=== PATIENT | male | born 1935 | race Caucasian/White ===

== ENCOUNTER 2022-04-02 08:08 | Inpatient (IN) | payer OTHER, MEDICARE ==
[~2022-04-02] VITALS: Ht 188 cm; Wt 82.6 kg
[2022-04-02 08:08] VITALS: BP_SYST 148
--- NOTE | 2022-04-02 08:08 | NUR ---
BROUGHT IMMEDIATELY BACK TO BED #3 VIA WHEELCHAIR AND TRIAGED. REPORT GIVEN TO MAGGIE
--- NOTE | 2022-04-02 08:10 | NUR ---
REPORT RECEIVED, CARE ASSUMED, PT ASSESSED. PT ATTACHED TO MONITOR, EKG OBTAINED, IV STARTED AND BLOOD OBTAINED AND TAKEN TO LAB
--- NOTE | 2022-04-02 08:15 | NUR ---
MATTHEW Lyn at bedside examining patient.
--- NOTE | 2022-04-02 08:35 | NUR ---
Blood specimens sent to lab at this time.
[2022-04-02] MEDS ORDERED: NIAC250T18 PO (08:42)
[2022-04-02] MEDS ORDERED: MULT-1089 PO (08:42)
[2022-04-02] MEDS ORDERED: AMLO5TAB4 PO (08:42)
[2022-04-02] MEDS ORDERED: CALC-823 PO (08:42)
[2022-04-02] MEDS ORDERED: LOSA1TAB43 PO (08:42)
[2022-04-02] MEDS ORDERED: METO50TA7 PO (08:42)
[2022-04-02] MEDS ORDERED: TAMS-11 PO (08:42)
[2022-04-02] MEDS ORDERED: AMIO200T6 PO (08:42)
[2022-04-02] MEDS ORDERED: ASPI-862 PO (08:42)
--- NOTE | 2022-04-02 08:43 | NUR ---
Medication reconciliation completed with information provided by PTS LIST. Any prior medication reconciliation on file was reviewed and corrected.
--- NOTE | 2022-04-02 08:43 | NUR ---
DR VILLELA SPEAKING WITH PTS SON
--- NOTE | 2022-04-02 08:44 | NUR ---
XRAYS BEING DONE AT BEDSIDE. FAMILY AT BEDSIDE.
[2022-04-02 08:52] LABS: BASOPHILS % (AUTO) 0.2 % (0.0-2.0); HEMATOCRIT 46.8 % (36-54); HEMOGLOBIN 15.6 g/dL (14.0-18.0); LYMPHOCYTES # (AUTO) 1.5 K/uL (1.0-5.5); LYMPHOCYTES % (AUTO) 11.9 % (20.5-51.5); MEAN CORPUSCULAR HEMOGLOBIN 31 pg (27-31); MEAN CORPUSCULAR HGB CONC 33 % (32-36); MEAN CORPUSCULAR VOLUME 94 fL (79.0-98.0); MONOCYTES % (AUTO) 8.2 % (1.7-9.3); NEUTROPHILS # (AUTO) 9.9 K/uL (1.8-7.7); NEUTROPHILS % (AUTO) 79.7 % (40.0-70.0); PLATELET COUNT (AUTO) 155 K/uL (130-430); RED CELL DISTRIBUTION WIDTH 14.8 % (9.0-15.0); WHITE BLOOD COUNT (AUTO) 12.4 K/uL (4.8-10.8)
[2022-04-02] MEDS ORDERED: AMIODARONE HCL 450 MG/9 ML VIAL IV ONE (08:59)
[2022-04-02] MEDS ORDERED: AMIODARONE HCL 150 MG/3ML VIAL ONE (08:59)
[2022-04-02] MEDS ORDERED: AMIODARONE HCL 150 MG in D5W 97 ML IV ONE (09:00)
[2022-04-02] MEDS ORDERED: AMIODARONE HCL 450 MG in D5W 241 ML IV ONE (09:00)
--- NOTE | 2022-04-02 09:10 | NUR ---
AMIODARONE BOLUS STARTED
[2022-04-02 09:11] LABS: ANION GAP 19 (5-15); CALCIUM 8.8 mg/dL (8.4-11.0); CHLORIDE 104 mmol/L (98-107); CREATININE 2.67 mg/dL (0.55-1.30); GLUCOSE 151 mg/dL (70-99); UREA NITROGEN, BLOOD 26 mg/dL (8-21)
[2022-04-02 09:17] LABS: ALANINE AMINOTRANSFERASE 271 U/L (12-78); ASPARTATE AMINOTRANSFERASE 190 U/L (10-37); TOTAL BILIRUBIN 1.5 mg/dL (0.0-1.0)
[2022-04-02] MEDS ORDERED: FUROSEMIDE 20 MG/2 ML VIAL IVP ONE ×2 (09:30→14:30)
[2022-04-02] MEDS ORDERED: ASPIRIN 325 MG TABLET PO ONE (09:30)
--- NOTE | 2022-04-02 09:30 | NUR ---
AMIODARONE BOLUS COMPLETE, GTT STARTED
--- NOTE | 2022-04-02 10:00 | NUR ---
PT RESTING QUIETLY, STATUS UNCHANGED, RESP EASY, CHANGED TO HOSP GOWN
--- NOTE | 2022-04-02 10:10 | NUR ---
AMIODARONE GTT DC'D PER DR VILLELA ORDER FROM DR YEIMI LINN
--- NOTE | 2022-04-02 10:31 | NUR ---
COVID TEST GIVEN TO LAB AT 10:24
--- NOTE | 2022-04-02 10:31 | NUR ---
Admit bed requested Patient will be admitted to care of . Admitted to TELE unit. Diagnosis CHF EXAC Inpatient (Yes or No)Y Observation (Yes or No) N Orientation concerns or request close to nursing station (Yes or No) N Covid Status PENDING On vent or bipap N Isolation requirements N Needs a sitter From Home (Yes or if No enter name of facility) Requires Dialysis (Yes or No) Med Rec Completed (Yes of No)
--- NOTE | 2022-04-02 10:57 | NUR ---
PT RESTING QUIETLY, RESP EASY, MM PINK, NO APPARENT DISTRESS. NO CHANGE IN CONDITION. WILL CONT TO MONITOR
[2022-04-02 11:15] LABS: PROTHROMBIN TIME 10.6 SECS (9.5-12.5)
[2022-04-02] MEDS ORDERED: ENOXAPARIN SODIUM 80 MG/0.8 ML SYRINGE SUBCUT SCH (12:00)
--- NOTE | 2022-04-02 12:02 | NUR ---
Patient will be admitted to care of . Admitted to tele unit. Will go to room 111. Belongings list completed. Complete and up to date summary report printed. SBAR report to be given at bedside with opportunity for questions.
[2022-04-02 12:26] VITALS: BP_SYST 182
--- NOTE | 2022-04-02 12:30 | NUR ---
Admission notes Received report from Michele MELLO ( E.R nurse)
[2022-04-02 12:35] VITALS: BP_SYST 182
--- NOTE | 2022-04-02 12:35 | NUR ---
Admission notes Received patient E.R awake and oriented x 4, Respiration even , no c/o chest pain or SOB, no signs of distress, sinus rhythm on monitor. Oxygen saturation 98% on 2L nasal cannula. Abdomen soft nontender, skin warm to touch. IV to bilateral arms and right hand patent. Oriented to room and call light, all safety measure secure, call light w/in reached , bed in low position, continue to monitor.
--- NOTE | 2022-04-02 13:50 | NUR ---
Dr. Saha at bedside seeing patient
--- NOTE | 2022-04-02 13:54 | NUR ---
Critical lab Dr. Saha aware of troponin 474
[2022-04-02] MEDS ORDERED: TAMSULOSIN HCL 0.4 MG CAP PO ONE (14:15)
[2022-04-02] MEDS ORDERED: NON-FORMULARY MEDICATION (Losartan/Hctz* (Losartan-Hctz 100-12.5 Mg Tab*) 1 EACH) PO SCH (14:15)
[2022-04-02] MEDS ORDERED: AMIODARONE HCL 200 MG TABLET PO ONE (14:15)
[2022-04-02] MEDS ORDERED: METOPROLOL SUCCINATE 50 MG TAB.SR.24H (TOPROL XL) PO ONE (14:15)
[2022-04-02] MEDS ORDERED: PANTOPRAZOLE SODIUM 40 MG TAB PO ONE (14:30)
[2022-04-02] MEDS ORDERED: NITROGLYCERIN 1 INCH (GM) OINT. TP ONE (14:30)
--- NOTE | 2022-04-02 15:09 | NUR ---
BLADDER SCAN- PT WENT TO BATHROOM AND HAD BOWEL MOVEMENT AND ALSO URINATE. BLADDER SCAN DONE AND ITS ONLY HAD 37ML POST VOID.
[2022-04-02 15:39] VITALS: BP_SYST 160
--- NOTE | 2022-04-02 15:46 | NUR ---
CARDIOLOGY CONSULT WITH DR MUNIZ WAS TEXTED TO HIM, TO SEE PT TOMORROW 04/03/[address] ATT[address]ING MD DR JALLOH, RE: CHF.
--- NOTE | 2022-04-02 15:51 | NUR ---
DR JALLOH IS AWARE THAT DR MUNIZ, CARDIO MD WILL BE BACK TOMORROW.
[2022-04-02] MEDS ORDERED: cloNIDine HCL 0.1 MG TABLET PO PRN (16:15)
--- NOTE | 2022-04-02 16:15 | NUR ---
Rounding Patient awake, no c/o chest discomfort, no signs of distress, family at bedside.
[2022-04-02 16:42] VITALS: BP_SYST 139
--- NOTE | 2022-04-02 17:46 | NUR ---
CONSULTATION PAGED/CALLED Reason for Consultation: CHF Person Who was Notified: URBANO MCCLURE COVERING FOR DR MUNIZ Consulting Physician: ISABELLA MUNIZ Ordering Physician: YOSSI JALLOH
--- NOTE | 2022-04-02 18:37 | NUR ---
Closing notes Patient awake no c/o chest pain/discomfort or SOB, no signs of distress, sinus rhythm on monitor. Oxygen saturation 98% on 2L nasal cannula. IV to bilateral arms and right hand patent. All safety measure secure, call light w/in reached , bed in low position, will endorse to oncoming nurse.
[2022-04-02 18:46] LABS: INR 1.1 (0.80-1.20); PROTHROMBIN TIME 11.2 SECS (9.5-12.5)
--- NOTE | 2022-04-02 19:25 | NUR ---
OPENING NOTE PT SITTING UP IN BED WITH EYES CLOSED. NO APPARENT SIGNS OF DISTRESS NOTED AT THIS TIME. BED IS IN LOWEST POSITION WITH FALL AND SAFETY PRECAUTIONS IN PLACE. CALL LIGHT IS WITHIN REACH. PT EDUCATED ON HOW TO USE IT.
[2022-04-02 20:00] VITALS: BP_SYST 113
[2022-04-02 20:07] LABS: BILIRUBIN,URINE NEGATIVE (NEGATIVE); CLARITY/URINE CLEAR (CLEAR); COLOR,URINE YELLOW (YELLOW); GLUCOSE,URINE NEGATIVE (NEGATIVE); KETONES,URINE NEGATIVE (NEGATIVE); LEUKOCYTE ESTERASE ,URINE NEGATIVE (NEGATIVE); NITRITE, URINE NEGATIVE (NEGATIVE); PH,URINE 5.5 (5.0-8.0); PROTEIN URINE TRACE (NEGATIVE); UROBILINOGEN,URINE 0.2 (0.2-1.0)
[2022-04-02 20:34] LABS: BLOOD, URINE TRACE (NEGATIVE)
[2022-04-02 20:57] LABS: BACTERIA,URINE None Seen /HPF (None Seen); MUCUS,URINE None Seen /LPF (None Seen); RBC,URINE 0-3 /HPF (0-3); WBC,URINE 0-3 /HPF (0-3)
[2022-04-02 20:58] LABS: HYALINE CASTS, URINE 0-10 /LPF (None Seen)
[2022-04-02] MEDS: FUROSEMIDE 20 MG/2 ML VIAL IVP SCH (22:29)
[2022-04-03 00:30] VITALS: BP_SYST 117
--- NOTE | 2022-04-03 01:30 | NUR ---
BLADDER SCAN BLADDER SCAN PERFORMED ORDERED. 320 ML OF URINE PRESENT IMMEDIATELY AFTER PT URINATED 150 ML OF YELLOW URINE
--- NOTE | 2022-04-03 06:40 | NUR ---
CLOSING NOTE PT SIDE LYING IN BED WITH EYES CLOSED. NO APPARENT SIGNS OF DISTRESS NOTED AT THIS TIME. BED IS IN LOWEST POSITION WITH FALL AND SAFETY PRECAUTIONS IN PLACE. CALL LIGHT IS WITHIN REACH. PT HAS BEEN NPO SINCE 717
[2022-04-03 07:06] LABS: BASOPHILS % (AUTO) 0.5 % (0.0-2.0); EOSINOPHILS % (AUTO) 0.2 % (0.0-4.0); HEMATOCRIT 40.8 % (36-54); LYMPHOCYTES # (AUTO) 1.1 K/uL (1.0-5.5); LYMPHOCYTES % (AUTO) 12.2 % (20.5-51.5); MEAN CORPUSCULAR HEMOGLOBIN 32 pg (27-31); MEAN CORPUSCULAR HGB CONC 34 % (32-36); MEAN CORPUSCULAR VOLUME 92 fL (79.0-98.0); MONOCYTES # (AUTO) 0.7 K/uL (0.0-1.0); MONOCYTES % (AUTO) 8.3 % (1.7-9.3); NEUTROPHILS % (AUTO) 78.8 % (40.0-70.0); PLATELET COUNT (AUTO) 120 K/uL (130-430); RED BLOOD CELL COUNT(AUTO) 4.44 MIL/uL (4.2-6.2); RED CELL DISTRIBUTION WIDTH 15.1 % (9.0-15.0); WHITE BLOOD COUNT (AUTO) 8.9 K/uL (4.8-10.8)
[2022-04-03 07:29] LABS: ALANINE AMINOTRANSFERASE 160 U/L (12-78); ALBUMIN 3.6 g/dL (3.4-4.8); ANION GAP 14 (5-15); ASPARTATE AMINOTRANSFERASE 58 U/L (10-37); CALCIUM 8.3 mg/dL (8.4-11.0); CHLORIDE 107 mmol/L (98-107); CHOLESTEROL 143 mg/dL (<200); CREATININE 2.52 mg/dL (0.55-1.30); GLUCOSE 108 mg/dL (70-99); HDL CHOLESTEROL 61 mg/dL (>45); LDL CHOLESTEROL 64 mg/dL (<100); TOTAL BILIRUBIN 1.7 mg/dL (0.0-1.0); TRIGLYCERIDES 129 mg/dL (30-150); UREA NITROGEN, BLOOD 37 mg/dL (8-21)
[2022-04-03 08:00] VITALS: BP_SYST 132
[2022-04-03] MEDS ORDERED: LOSARTAN POTASSIUM 50 MG TABLET (COZAAR) PO SCH (09:00)
[2022-04-03] MEDS: TAMSULOSIN HCL 0.4 MG CAP PO SCH (09:52)
[2022-04-03] MEDS: MULTIVITAMINS TAB 1 TABLET PO SCH (09:52)
[2022-04-03] MEDS: AMIODARONE HCL 200 MG TABLET PO SCH ×2 (09:53→09:57)
[2022-04-03] MEDS: CALCIUM CARBONATE/VITAMIN D3 1 TAB TABLET PO SCH (09:54)
[2022-04-03] MEDS: PANTOPRAZOLE SODIUM 40 MG TAB PO SCH (09:54)
[2022-04-03] MEDS: amLODIPine BESYLATE 5 MG TABLET PO SCH (09:54)
[2022-04-03] MEDS: METOPROLOL SUCCINATE 50 MG TAB.SR.24H (TOPROL XL) PO SCH (09:57)
[2022-04-03] MEDS: FUROSEMIDE 20 MG/2 ML VIAL IVP SCH ×2 (09:59→21:00)
[2022-04-03] MEDS: ASPIRIN 325 MG TABLET (ECOTRIN) PO SCH (10:01)
[2022-04-03] MEDS: NIACIN 250 MG TABLET PO SCH (10:06)
--- NOTE | 2022-04-03 12:52 | NUR ---
Tester Operator Helper CATTLE BRANDER received a call from asking for assistance. Pts. son is requesting a DPOA form for pt./Father to fill out. CATTLE BRANDER met with both pt. and son in pts. room and explained the DPOA and how to fill it out. CATTLE BRANDER also provided instructions on how to fill out this DPOA as well as explained how to make it a legal document with signatures. CATTLE BRANDER gave pt. and son her business card and asked they call her if they had any questions. CATTLE BRANDER will remain available as needed.
[2022-04-03 16:00] VITALS: BP_SYST 121
[2022-04-03 20:00] VITALS: BP_SYST 121
--- NOTE | 2022-04-03 22:27 | NUR ---
Patient in bed. No acute distress noted. Turned repositioned q2. Will continue to monitor.
[2022-04-04 04:00] VITALS: BP_SYST 144
[2022-04-04 08:00] VITALS: BP_SYST 146
[2022-04-04] MEDS ORDERED: TAMSULOSIN HCL 0.4 MG CAP PO SCH (09:00)
[2022-04-04] MEDS: amLODIPine BESYLATE 5 MG TABLET PO SCH (09:46)
[2022-04-04] MEDS: TAMSULOSIN HCL 0.4 MG CAP PO SCH (09:46)
[2022-04-04] MEDS: MULTIVITAMINS TAB 1 TABLET PO SCH (09:47)
[2022-04-04] MEDS: METOPROLOL SUCCINATE 50 MG TAB.SR.24H (TOPROL XL) PO SCH (09:47)
[2022-04-04] MEDS: PANTOPRAZOLE SODIUM 40 MG TAB PO SCH (09:47)
[2022-04-04] MEDS: NIACIN 250 MG TABLET PO SCH (09:48)
[2022-04-04] MEDS: FUROSEMIDE 20 MG/2 ML VIAL IVP SCH ×2 (09:48→20:21)
[2022-04-04] MEDS: CALCIUM CARBONATE/VITAMIN D3 1 TAB TABLET PO SCH (09:49)
[2022-04-04] MEDS: ASPIRIN 325 MG TABLET (ECOTRIN) PO SCH (09:50)
[2022-04-04 12:54] VITALS: BP_SYST 145
[2022-04-04 16:48] VITALS: BP_SYST 147
--- NOTE | 2022-04-04 17:47 | NUR ---
Dietitian Recommendations * Mechanical soft diet * Ensure HP BID (ONS provides 700 kcals and 40 g protein) Please refer to nutrition assessment for details, thanks! CC, MPH, RDN
[2022-04-04 20:00] VITALS: BP_SYST 126
--- NOTE | 2022-04-04 21:26 | NUR ---
Patient in bed. Turned repositioned q2. No acute distress noted. Will continue to monitor.
[2022-04-05 01:25] VITALS: BP_SYST 120
[2022-04-05 07:20] LABS: BASOPHILS % (AUTO) 0.3 % (0.0-2.0); EOSINOPHILS % (AUTO) 0.2 % (0.0-4.0); HEMATOCRIT 42.1 % (36-54); HEMOGLOBIN 14.5 g/dL (14.0-18.0); LYMPHOCYTES # (AUTO) 1.1 K/uL (1.0-5.5); LYMPHOCYTES % (AUTO) 11.3 % (20.5-51.5); MEAN CORPUSCULAR HEMOGLOBIN 32 pg (27-31); MEAN CORPUSCULAR HGB CONC 34 % (32-36); MEAN CORPUSCULAR VOLUME 92 fL (79.0-98.0); MONOCYTES # (AUTO) 0.8 K/uL (0.0-1.0); MONOCYTES % (AUTO) 7.7 % (1.7-9.3); NEUTROPHILS # (AUTO) 8.1 K/uL (1.8-7.7); NEUTROPHILS % (AUTO) 80.5 % (40.0-70.0); PLATELET COUNT (AUTO) 125 K/uL (130-430); RED BLOOD CELL COUNT(AUTO) 4.56 MIL/uL (4.2-6.2); RED CELL DISTRIBUTION WIDTH 14.6 % (9.0-15.0); WHITE BLOOD COUNT (AUTO) 10.1 K/uL (4.8-10.8)
[2022-04-05 07:35] VITALS: BP_SYST 155
--- NOTE | 2022-04-05 07:35 | NUR ---
OPENING NOTE Patient resting in bed. Patient A/O x 4 South African speaking. On bedrest with urinal placed at bedside. No pain, no sob, no distress noted at this time. All needs met, safety precautions in place, bed is locked in lowest position, call light within reach. Will continue to monitor.
[2022-04-05 08:45] LABS: ALANINE AMINOTRANSFERASE 103 U/L (12-78); ANION GAP 10 (5-15); ASPARTATE AMINOTRANSFERASE 31 U/L (10-37); CHLORIDE 105 mmol/L (98-107); GLUCOSE 115 mg/dL (70-99); POTASSIUM 3.3 mmol/L (3.5-5.1); TOTAL BILIRUBIN 1.7 mg/dL (0.0-1.0); UREA NITROGEN, BLOOD 49 mg/dL (8-21)
[2022-04-05] MEDS: AMIODARONE HCL 200 MG TABLET PO SCH (08:49)
[2022-04-05] MEDS: METOPROLOL SUCCINATE 50 MG TAB.SR.24H (TOPROL XL) PO SCH (08:50)
[2022-04-05] MEDS: MULTIVITAMINS TAB 1 TABLET PO SCH (08:50)
[2022-04-05] MEDS: TAMSULOSIN HCL 0.4 MG CAP PO SCH (08:50)
[2022-04-05] MEDS: ASPIRIN 325 MG TABLET (ECOTRIN) PO SCH (08:50)
[2022-04-05] MEDS: CALCIUM CARBONATE/VITAMIN D3 1 TAB TABLET PO SCH (08:51)
[2022-04-05] MEDS: amLODIPine BESYLATE 5 MG TABLET PO SCH (08:51)
[2022-04-05] MEDS: PANTOPRAZOLE SODIUM 40 MG TAB PO SCH (08:52)
[2022-04-05] MEDS: NIACIN 250 MG TABLET PO SCH (08:53)
[2022-04-05 08:56] LABS: CALCIUM 8.8 mg/dL (8.4-11.0)
[2022-04-05] MEDS: FUROSEMIDE 20 MG/2 ML VIAL IVP SCH ×2 (09:05→20:31)
--- NOTE | 2022-04-05 09:36 | NUR ---
MD Call Spoke with MD Lange regarding low postassium level of 3.3. gave orders for one time 40meq potassium. Orders carried out.
[2022-04-05] MEDS ORDERED: POTASSIUM CHLORIDE 20 MEQ/PKT PACKET PO ONE (09:45)
--- NOTE | 2022-04-05 11:58 | NUR ---
Patient Rounds Patient with physical therapy at this time. No pain, no sob, no distress noted at this time. All needs met, safety precautions in place, bed is locked in lowest position, call light within reach. Will continue to monitor.
[2022-04-05 12:08] VITALS: BP_SYST 131
[2022-04-05 12:09] VITALS: BP_SYST 136
--- NOTE | 2022-04-05 12:51 | NUR ---
EVALUATION COMPLETED. PATIENT IS SAFE TO USE THE FWW FOR AMBULATION WITH NURSING SUPERVISION/ASSISTANCE. HE NEEDS HELP WITH THE O2 TANK SINCE HE IS ON CONTINUOUS O2 AT 3 LITERS. RN PRESENT. NO NEED FOR FURTHER PHYSICAL THERAPY.
--- NOTE | 2022-04-05 14:45 | NUR ---
Discharge Planning: DCP faxed pt referral to [facility] [phone] for PT, safety eval and [facility] [phone] [facility] [phone] for home oxygen. DCP to follow up.
--- NOTE | 2022-04-05 14:51 | NUR ---
Oxygen Evaluation Patient on 3LPM of O2 and saturations noted at 95%. Took off oxygen and went for a walk around the station, patients saturations fluctuated between 88-90%. Once we got back to his room and laid him down his saturations dropped to 79-80%. Patient was very short of breath and oxygen was placed back. Took about 5 Mins for patient to stabilize and have saturations back up at 97% on 3LPM.
[2022-04-05 16:05] VITALS: BP_SYST 130
--- NOTE | 2022-04-05 16:05 | NUR ---
Patient Rounds Patient with family at bedside. No pain, no sob, no distress noted at this time. All needs met, safety precautions in place, bed is locked in lowest position, call light within reach. Will continue to monitor.
--- NOTE | 2022-04-05 16:37 | NUR ---
Patient accepted by [facility]
--- NOTE | 2022-04-05 18:48 | NUR ---
CLOSING NOTE Patient resting in bed. Patient A/O x 4 Belgian speaking. On bedrest with urinal placed at bedside. No pain, no sob, no distress noted at this time. All needs met, safety precautions in place, bed is locked in lowest position, call light within reach. Will endorse to nightshift nurse.
--- NOTE | 2022-04-05 19:30 | NUR ---
I received pt from the outgoing nurse awake alert and oriented x 3. re-oriented to time . spo2 is 95% on room air while lying in bed .pt requires oxygen with activity.vitals done BPS 121/63 HR 78 RR 18 SPO2-95% TEMP 96.5. pt denies pain
[2022-04-05 20:00] VITALS: BP_SYST 121
--- NOTE | 2022-04-05 21:00 | NUR ---
medicated as prescribed. Lasix 20mg iv.
--- NOTE | 2022-04-06 | NUR ---
PT ASLEEP .NO PAIN .FALL PRECAUTION MAINTAINED
[2022-04-06 06:00] VITALS: BP_SYST 138
--- NOTE | 2022-04-06 06:00 | NUR ---
VITALS DONE .BPS 138/73 SPO2--95 RA .HR 75 RR 16 TEMP 96 ,PT HAS VOIDED AND DENIES PAIN
[2022-04-06 06:50] LABS: BASOPHILS % (AUTO) 0.4 % (0.0-2.0); EOSINOPHILS % (AUTO) 0.4 % (0.0-4.0); HEMATOCRIT 41.5 % (36-54); HEMOGLOBIN 14.2 g/dL (14.0-18.0); LYMPHOCYTES # (AUTO) 1.2 K/uL (1.0-5.5); LYMPHOCYTES % (AUTO) 14.2 % (20.5-51.5); MEAN CORPUSCULAR HEMOGLOBIN 32 pg (27-31); MEAN CORPUSCULAR HGB CONC 34 % (32-36); MEAN CORPUSCULAR VOLUME 93 fL (79.0-98.0); MONOCYTES # (AUTO) 0.7 K/uL (0.0-1.0); MONOCYTES % (AUTO) 7.6 % (1.7-9.3); NEUTROPHILS # (AUTO) 6.8 K/uL (1.8-7.7); NEUTROPHILS % (AUTO) 77.4 % (40.0-70.0); PLATELET COUNT (AUTO) 134 K/uL (130-430); RED BLOOD CELL COUNT(AUTO) 4.48 MIL/uL (4.2-6.2); RED CELL DISTRIBUTION WIDTH 14.8 % (9.0-15.0); WHITE BLOOD COUNT (AUTO) 8.8 K/uL (4.8-10.8)
[2022-04-06 06:53] LABS: ANION GAP 11 (5-15); CALCIUM 8.7 mg/dL (8.4-11.0); CHLORIDE 106 mmol/L (98-107); GLUCOSE 120 mg/dL (70-99); POTASSIUM 3.5 mmol/L (3.5-5.1); UREA NITROGEN, BLOOD 48 mg/dL (8-21)
--- NOTE | 2022-04-06 07:00 | NUR ---
AWAITS TO GO HOME ON HOME HEALTH
[2022-04-06 07:40] VITALS: BP_SYST 154
--- NOTE | 2022-04-06 07:40 | NUR ---
OPENING NOTE Patient resting in bed. Patient A/O x 4 Solomon Islander speaking. Family is at bedside. No pain, no sob, no distress noted at this time. Patient is awaiting for home discharge once MD clears him. All needs met, safety precautions in place, bed is locked in lowest position, call light within reach. Will continue to monitor.
[2022-04-06] MEDS: CALCIUM CARBONATE/VITAMIN D3 1 TAB TABLET PO SCH (08:46)
[2022-04-06] MEDS: TAMSULOSIN HCL 0.4 MG CAP PO SCH (08:46)
[2022-04-06] MEDS: PANTOPRAZOLE SODIUM 40 MG TAB PO SCH (08:46)
[2022-04-06] MEDS: amLODIPine BESYLATE 5 MG TABLET PO SCH (08:47)
[2022-04-06] MEDS: MULTIVITAMINS TAB 1 TABLET PO SCH (08:47)
[2022-04-06] MEDS: AMIODARONE HCL 200 MG TABLET PO SCH (08:47)
[2022-04-06] MEDS: METOPROLOL SUCCINATE 50 MG TAB.SR.24H (TOPROL XL) PO SCH (08:48)
--- NOTE | 2022-04-06 08:48 | NUR ---
Discharge Planning: DCP followed up on pt referral to [facility] [phone] for PT patient accepted, safety eval and [facility] [phone] [facility] [phone] delivered home oxygen to home 04/05/2022.
[2022-04-06] MEDS: ASPIRIN 325 MG TABLET (ECOTRIN) PO SCH (08:49)
[2022-04-06] MEDS: NIACIN 250 MG TABLET PO SCH (08:49)
[2022-04-06] MEDS ORDERED: APIXABAN 2.5 MG TABLET PO ONE (09:15)
[2022-04-06] MEDS: FUROSEMIDE 20 MG/2 ML VIAL IVP SCH (09:16)
--- NOTE | 2022-04-06 09:40 | NUR ---
EMBROIDERY ASSISTANT ACSW Munira responded to a request for Social Service support from JOSEFA Sandoval stating patient was requesting to speak to Christian Science Practitioner. ACSW Munira met with patient at bedside. Patient's son Shon was also at bedside. ACSW completed introductions and provided business card. Patient's son Shon was requesting information related to completion of FMLA paperwork and obtaining PCP for patient. ACSW provided a brief explanation of the family member requesting FMLA will need to obtain appropriate documents from their employer and contact patient's PCP who will be providing ongoing care to treat patient's condition and request their support with document completion. ACSW also provided patient's son with letter depicting patient's admit date. ACSW also provided him with the address and phone number for Dr. Harrison's office as they expressed wanting to establish ongoing care with him. ACSW will continue to be available as needed.
[2022-04-06] MEDS ORDERED: POTASSIUM CHLORIDE 10 MEQ TAB.PRT.SR PO ONE (11:30)
[2022-04-06] MEDS ORDERED: FUROSEMIDE 40 MG TABLET PO ONE (11:30)
[2022-04-06 11:34] VITALS: BP_SYST 122
[2022-04-06] MEDS ORDERED: NIAC250T18 PO (12:07)
[2022-04-06] MEDS ORDERED: AMIO200T61 PO (12:07)
[2022-04-06] MEDS ORDERED: METO-542 PO (12:07)
[2022-04-06] MEDS ORDERED: TAMS0.4C96 PO (12:07)
[2022-04-06] MEDS ORDERED: APIX2.5T PO (12:07)
[2022-04-06] MEDS ORDERED: OSCD500 PO (12:07)
[2022-04-06] MEDS ORDERED: POTA-178 PO (12:07)
[2022-04-06] MEDS ORDERED: PRO40 PO (12:07)
[2022-04-06] MEDS ORDERED: FURO-149 PO (12:07)
[2022-04-06] MEDS ORDERED: MULT400T13 PO (12:07)
[2022-04-06 12:17] VITALS: BP_SYST 122
--- NOTE | 2022-04-06 12:30 | NUR ---
D/C Patient Patient given medication reconciliation form and D/C instructions. Exit Care provided. Patient verbalized understanding. MD discussed with patient the results and treatment provided. Ambulatory with steady gait for discharge to home. Patient in stable condition, ID band removed. IV catheter removed, intact and dressing applied, no active bleeding. Rx of given. Patient educated on pain management. All belongings sent with patient.
[2022-04-06] MEDS ORDERED: TAMSULOSIN HCL 0.4 MG CAP PO SCH (21:00)
[2022-04-06] MEDS ORDERED: APIXABAN 2.5 MG TABLET PO SCH (21:00)
--- NOTE | 2022-04-07 08:24 | NUR ---
Dispo code 06
[2022-04-07] MEDS ORDERED: FUROSEMIDE 40 MG TABLET PO SCH (09:00)
[2022-04-07] MEDS ORDERED: POTASSIUM CHLORIDE 10 MEQ TAB.PRT.SR PO SCH (09:00)
== END 2022-04-06 12:31 | disposition home health service (06) | DRG 280 ==
LOC: SED 08:08 → STU 10:20
PROVIDERS: ADMIT Internal Medicine; ATTEND Internal Medicine
DX: I11.0 Hypertensive heart disease with heart failure (principal); I21.4 Non-ST elevation (NSTEMI) myocardial infarction; I50.43 Acute on chronic combined systolic (congestive) and diastolic (congestive) heart failure; N17.0 Acute kidney failure with tubular necrosis; I48.20 Chronic atrial fibrillation, unspecified; E44.1 Mild protein-calorie malnutrition; I42.9 Cardiomyopathy, unspecified; E87.6 Hypokalemia; K57.90 Diverticulosis of intestine, part unspecified, without perforation or abscess without bleeding; Z20.822 Contact with and (suspected) exposure to COVID-19; N40.0 Benign prostatic hyperplasia without lower urinary tract symptoms; Z79.01 Long term (current) use of anticoagulants; Z79.82 Long term (current) use of aspirin; Z79.899 Other long term (current) drug therapy; Z85.46 Personal history of malignant neoplasm of prostate; Z68.23 Body mass index [BMI] 23.0-23.9, adult
CPT/HCPCS: 36415; 71045; 76376; 76700-TC; 80048; 80053; 80061; 81000; 83880; 84443; 84484; 85025; 85610-TC; 85730-TC; 86886; 86900; 86901; 93005; 93306; 96365; 96366; 96375; 99291; G0378; J0282; J1650; J1940

== ENCOUNTER 2023-04-13 10:43 | Outpatient (CLI) | payer OTHER, MEDICARE ==
[~2023-04-13 10:43] MED LIST: AMIO200T6 PO; AMIO200T68 PO; APIX2.5T PO; FURO-149 PO; METO-542 PO; METO50TA7 PO; MULT400T13 PO; NIAC250T18 PO; OSCD500 PO; POTA-178 PO; PRO40 PO; TAMS0.4C96 PO
== END 2023-04-13 18:40 | disposition home or self-care (01) ==
LOC: SCA 10:43
PROVIDERS: ATTEND Internal Medicine Cardiovascular Disease
DX: I08.3 Combined rheumatic disorders of mitral, aortic and tricuspid valves (principal); I27.20 Pulmonary hypertension, unspecified; I31.39 Other pericardial effusion (noninflammatory); R93.1 Abnormal findings on diagnostic imaging of heart and coronary circulation; R00.2 Palpitations; R07.9 Chest pain, unspecified
CPT/HCPCS: 93306